=== PATIENT | male | born 1955 | race Hispanic/Latino ===

== ENCOUNTER 2020-11-29 18:45 | Inpatient (IN) | payer MEDICAID, OTHER ==
[~2020-11-29] VITALS: Ht 165.1 cm; Wt 76.7 kg
[2020-11-29] MEDS ORDERED: IOHEXOL-350 75 ML VIAL IV ONE (19:14)
[2020-11-29 19:15] LABS: BASOPHILS % (AUTO) 0.4 % (0.0-5.0); EOSINOPHILS % (AUTO) 0.4 % (0.0-8.0); HEMATOCRIT 44.8 % (42-54); LYMPHOCYTES % (AUTO) 9.5 % (21.0-51.0); MEAN CORPUSCULAR HEMOGLOBIN 31.5 pg (27.0-33.0); MEAN CORPUSCULAR HGB CONC 34.2 g/dL (32.0-36.0); MEAN CORPUSCULAR VOLUME 92.2 fL (79-99); MONOCYTES % (AUTO) 5.7 % (3.0-13.0); NEUTROPHILS % (AUTO) 83.5 % (40.0-77.0); PLATELET COUNT (AUTO) 420 K/uL (130-400); RED BLOOD CELL COUNT(AUTO) 4.86 MIL/uL (4.50-6.20); RED CELL DISTRIBUTION WIDTH 12.7 % (11.0-15.5); WHITE BLOOD COUNT (AUTO) 11.2 K/uL (4.8-10.8)
[2020-11-29] MEDS ORDERED: IOHEXOL-350 50ML VIAL IV ONE (19:15)
[2020-11-29 19:28] LABS: CREATININE 1.3 mg/dL (0.5-1.5); POTASSIUM 4.3 mmol/L (3.5-5.1)
[2020-11-29 19:30] LABS: INR 1.01 (0.85-1.15)
[2020-11-29] MEDS ORDERED: MORPHINE 4 MG SYG ONE ×2 (19:30→23:24)
[2020-11-29 19:31] LABS: PARTIAL THROMBOPLASTIN TIME 28.8 SEC (26.3-35.5)
[2020-11-29 19:33] LABS: ALBUMIN 3.2 g/dL (3.5-5.0); BILIRUBIN,TOTAL 0.7 mg/dL (0.2-1.0)
[2020-11-29 19:48] LABS: B-TYPE NATRIURETIC PEPTIDE 948 pg/mL (0-100)
[2020-11-29] MEDS ORDERED: HEPARIN 5,000 UNIT VIAL ONE (20:21)
[2020-11-29] MEDS ORDERED: HEPARIN 25,000 UNITS/250ML D5W 250 ML IV ONE (20:22)
[2020-11-29] MEDS ORDERED: 0.9%NACL 1000ML 1,000 ML IV ONE (20:22)
[2020-11-29] MEDS ORDERED: LACTULOSE 20 GM/30 ML UDCUP PO PRN (23:45)
[2020-11-29] MEDS ORDERED: DiphenhydrAMINE HCL 50 MG/ML VIAL IV PRN (23:45)
[2020-11-29] MEDS ORDERED: HYDROMORPHONE 1 MG INJ IV PRN (23:45)
[2020-11-29] MEDS ORDERED: MAG/ALUM/SIMETH 30 ML UDCUP PO PRN (23:45)
[2020-11-29] MEDS ORDERED: ONDANSETRON 4MG INJ IV PRN (23:45)
[2020-11-29] MEDS ORDERED: DIPHENHYDRAMINE HCL 25 MG CAPSULE PO PRN (23:45)
[2020-11-29] MEDS ORDERED: NITROGLYCERIN 0.4 MG SL TAB SL PRN (23:45)
[2020-11-29] MEDS ORDERED: MORPHINE 2 MG SYG IV PRN (23:45)
[2020-11-29] MEDS: LACTATED RINGERS 1000ML 1,000 ML IV SCH (23:45)
[2020-11-29] MEDS ORDERED: ACETAMINOPHEN 325 MG TAB PO PRN ×2 (23:45)
[2020-11-29] MEDS ORDERED: GUAIFENESIN-DM 200/20 MG 10 ML PO PRN (23:45)
[2020-11-29] MEDS ORDERED: FUROSEMIDE 20MG VIAL ONE (23:47)
[2020-11-29 23:58] LABS: POTASSIUM 4.3 mmol/L (3.5-5.1)
[2020-11-30] MEDS ORDERED: MORPHINE 2 MG SYG ONE (02:36)
[2020-11-30 03:34] LABS: INR 1.05 (0.85-1.15); PROTHROMBIN TIME 11.4 SEC (9.6-11.6)
[2020-11-30 05:43] LABS: BASOPHILS % (AUTO) 0.2 % (0.0-5.0); EOSINOPHILS % (AUTO) 0.8 % (0.0-8.0); HEMATOCRIT 42.4 % (42-54); LYMPHOCYTES % (AUTO) 11.2 % (21.0-51.0); MEAN CORPUSCULAR HEMOGLOBIN 31.2 pg (27.0-33.0); MEAN CORPUSCULAR VOLUME 91.8 fL (79-99); NEUTROPHILS % (AUTO) 80.2 % (40.0-77.0); PLATELET COUNT (AUTO) 410 K/uL (130-400); RED BLOOD CELL COUNT(AUTO) 4.62 MIL/uL (4.50-6.20); RED CELL DISTRIBUTION WIDTH 12.8 % (11.0-15.5); WHITE BLOOD COUNT (AUTO) 9.5 K/uL (4.8-10.8)
[2020-11-30] MEDS: FUROSEMIDE 20MG VIAL IV SCH ×2 (06:00→18:13)
[2020-11-30 06:11] LABS: BILIRUBIN,TOTAL 0.6 mg/dL (0.2-1.0); POTASSIUM 4.2 mmol/L (3.5-5.1); TOTAL PROTEIN, SERUM 6.7 g/dL (6.0-8.3)
[2020-11-30 06:12] LABS: ALBUMIN 2.5 g/dL (3.5-5.0)
[2020-11-30] MEDS ORDERED: HEPARIN 25,000 UNITS/250ML D5W 250 ML IV PRN (06:30)
[2020-11-30] MEDS ORDERED: HEPARIN 10,000 UNIT/10ML (1,000 UNIT/ML) VIAL ONE (08:32)
[2020-11-30] MEDS ORDERED: IODIXANOL 320 MG/ML 100 ML VIAL ONE (08:32)
[2020-11-30] MEDS ORDERED: LIDOCAINE HCL 400MG/20ML VIAL ONE (08:32)
[2020-11-30] MEDS: 0.9%NACL 1000ML 1,000 ML IV SCH ×2 (09:00→19:00)
[2020-11-30] MEDS ORDERED: DiphenhydrAMINE HCL 50 MG/ML VIAL IVP PRN (09:00)
[2020-11-30] MEDS: FAMOTIDINE 20MG VIAL IV SCH ×2 (09:00→21:43)
[2020-11-30] MEDS ORDERED: DiphenhydrAMINE HCL 50 MG/ML VIAL ONE (09:35)
[2020-11-30] MEDS ORDERED: MIDAZOLAM HCL 1 MG/ML 2ML VIAL ONE (09:36)
[2020-11-30] MEDS ORDERED: FENTANYL CITRATE PF 50 MCG/1 ML 2ML VIAL ONE (09:36)
[2020-11-30] MEDS: LACTATED RINGERS 1000ML 1,000 ML IV SCH (09:45)
[2020-11-30] MEDS ORDERED: NITROGLYCERIN 2 MG VIAL IV ONE (09:55)
[2020-11-30] MEDS ORDERED: TICAGRELOR 90 MG TABLET ONE (11:47)
[2020-11-30] MEDS ORDERED: ASPIRIN 325MG EC TAB PO ONE (11:47)
[2020-11-30] MEDS ORDERED: 0.9%NACL 1000ML 1,000 ML IV SCH (12:00)
[2020-11-30] MEDS ORDERED: ALTEPLASE 2MG VIAL 2 MG/VIAL VIAL IVCATH ONE (12:00)
[2020-11-30 13:42] LABS: HEMATOCRIT 45.3 % (42-54); MEAN CORPUSCULAR HEMOGLOBIN 31.5 pg (27.0-33.0); MEAN CORPUSCULAR HGB CONC 33.8 g/dL (32.0-36.0); MEAN CORPUSCULAR VOLUME 93.2 fL (79-99); RED BLOOD CELL COUNT(AUTO) 4.86 MIL/uL (4.50-6.20); WHITE BLOOD COUNT (AUTO) 12.2 K/uL (4.8-10.8)
[2020-11-30 13:53] LABS: POTASSIUM 4.3 mmol/L (3.5-5.1)
[2020-11-30 14:03] LABS: INR 1.14 (0.85-1.15); PROTHROMBIN TIME 12.3 SEC (9.6-11.6)
[2020-11-30 14:04] LABS: PARTIAL THROMBOPLASTIN TIME 42.4 SEC (26.3-35.5)
[2020-11-30 15:58] LABS: INR 1.12 (0.85-1.15); PROTHROMBIN TIME 12.1 SEC (9.6-11.6)
[2020-11-30 15:59] LABS: PARTIAL THROMBOPLASTIN TIME 30.5 SEC (26.3-35.5)
[2020-11-30] MEDS: HEPARIN 25,000 UNITS/250ML D5W 250 ML IV SCH (16:07)
[2020-11-30 16:39] VITALS: BP 116/60
[2020-11-30 20:11] VITALS: BP 109/51
[2020-11-30] MEDS ORDERED: TICAGRELOR 90 MG TABLET PO SCH (21:00)
[2020-12-01] VITALS (7 sets, daily range): BP systolic 87–100; BP diastolic 43–55
[2020-12-01] MEDS: CEFTRIAXONE 1G VIAL IVP SCH ×2 (00:25→23:46)
[2020-12-01 04:45] LABS: BASOPHILS % (AUTO) 0.2 % (0.0-5.0); EOSINOPHILS % (AUTO) 0.2 % (0.0-8.0); HEMATOCRIT 40.4 % (42-54); LYMPHOCYTES % (AUTO) 7.9 % (21.0-51.0); MEAN CORPUSCULAR HEMOGLOBIN 30.6 pg (27.0-33.0); MEAN CORPUSCULAR HGB CONC 33.4 g/dL (32.0-36.0); MEAN CORPUSCULAR VOLUME 91.6 fL (79-99); MONOCYTES % (AUTO) 7.1 % (3.0-13.0); NEUTROPHILS % (AUTO) 84.2 % (40.0-77.0); PLATELET COUNT (AUTO) 382 K/uL (130-400); RED BLOOD CELL COUNT(AUTO) 4.41 MIL/uL (4.50-6.20); RED CELL DISTRIBUTION WIDTH 12.9 % (11.0-15.5); WHITE BLOOD COUNT (AUTO) 12.2 K/uL (4.8-10.8)
[2020-12-01 04:56] LABS: INR 1.16 (0.85-1.15); PROTHROMBIN TIME 12.5 SEC (9.6-11.6)
[2020-12-01 04:57] LABS: PARTIAL THROMBOPLASTIN TIME 62.6 SEC (26.3-35.5)
[2020-12-01] MEDS: 0.9%NACL 1000ML 1,000 ML IV SCH ×2 (05:00→10:00)
[2020-12-01 05:13] LABS: ALBUMIN 2.2 g/dL (3.5-5.0); BILIRUBIN,TOTAL 0.7 mg/dL (0.2-1.0); POTASSIUM 3.8 mmol/L (3.5-5.1); TOTAL PROTEIN, SERUM 6.1 g/dL (6.0-8.3)
[2020-12-01] MEDS: FUROSEMIDE 20MG VIAL IV SCH ×2 (06:07→17:24)
[2020-12-01] MEDS: FAMOTIDINE 20MG VIAL IV SCH ×2 (09:57→22:17)
[2020-12-01] MEDS: CLOPIDOGREL 75MG TAB PO SCH (09:57)
[2020-12-01] MEDS: ASPIRIN 325 MG TABLET PO SCH (09:57)
[2020-12-01] MEDS: ATORVASTATIN 20 MG TABLET PO SCH (22:17)
[2020-12-02 00:45] VITALS: BP 101/52
[2020-12-02] MEDS: 0.9%NACL 1000ML 1,000 ML IV SCH ×3 (01:00→20:31)
[2020-12-02 04:00] VITALS: BP 105/53
[2020-12-02 06:04] LABS: BASOPHILS % (AUTO) 0.3 % (0.0-5.0); EOSINOPHILS % (AUTO) 1.2 % (0.0-8.0); HEMATOCRIT 36.4 % (42-54); LYMPHOCYTES % (AUTO) 11.8 % (21.0-51.0); MEAN CORPUSCULAR HGB CONC 33.5 g/dL (32.0-36.0); MEAN CORPUSCULAR VOLUME 92.4 fL (79-99); MONOCYTES % (AUTO) 7.7 % (3.0-13.0); NEUTROPHILS % (AUTO) 78.4 % (40.0-77.0); PLATELET COUNT (AUTO) 337 K/uL (130-400); RED BLOOD CELL COUNT(AUTO) 3.94 MIL/uL (4.50-6.20); RED CELL DISTRIBUTION WIDTH 12.9 % (11.0-15.5); WHITE BLOOD COUNT (AUTO) 8.6 K/uL (4.8-10.8)
[2020-12-02] MEDS: FUROSEMIDE 20MG VIAL IV SCH ×2 (06:24→18:04)
[2020-12-02 06:43] LABS: ALBUMIN 2.1 g/dL (3.5-5.0); BILIRUBIN,TOTAL 0.3 mg/dL (0.2-1.0); CREATININE 0.8 mg/dL (0.5-1.5); POTASSIUM 3.8 mmol/L (3.5-5.1)
[2020-12-02 08:17] VITALS: BP 104/37
[2020-12-02] MEDS: FAMOTIDINE 20MG VIAL IV SCH ×2 (08:40→20:19)
[2020-12-02] MEDS: CLOPIDOGREL 75MG TAB PO SCH (08:40)
[2020-12-02] MEDS: ASPIRIN 325 MG TABLET PO SCH (08:40)
[2020-12-02 12:07] VITALS: BP 112/44
[2020-12-02] MEDS ORDERED: 0.9%NACL 1000ML 1,000 ML IV SCH (13:45)
[2020-12-02 17:14] VITALS: BP 98/39
[2020-12-02 20:00] VITALS: BP 104/37
[2020-12-02] MEDS: ATORVASTATIN 20 MG TABLET PO SCH (20:19)
[2020-12-03] VITALS: BP 128/62
[2020-12-03] MEDS: CEFTRIAXONE 1G VIAL IVP SCH ×2 (00:26→23:23)
[2020-12-03 04:00] VITALS: BP 107/55
[2020-12-03 06:21] LABS: BASOPHILS % (AUTO) 0.5 % (0.0-5.0); EOSINOPHILS % (AUTO) 1.6 % (0.0-8.0); HEMATOCRIT 36.7 % (42-54); MEAN CORPUSCULAR HGB CONC 32.7 g/dL (32.0-36.0); MEAN CORPUSCULAR VOLUME 94.8 fL (79-99); MONOCYTES % (AUTO) 6.9 % (3.0-13.0); NEUTROPHILS % (AUTO) 79.5 % (40.0-77.0); PLATELET COUNT (AUTO) 369 K/uL (130-400); RED BLOOD CELL COUNT(AUTO) 3.87 MIL/uL (4.50-6.20); RED CELL DISTRIBUTION WIDTH 13.1 % (11.0-15.5); WHITE BLOOD COUNT (AUTO) 7.9 K/uL (4.8-10.8)
[2020-12-03 06:30] LABS: INR 1.02 (0.85-1.15); PROTHROMBIN TIME 11.1 SEC (9.6-11.6)
[2020-12-03 06:31] LABS: PARTIAL THROMBOPLASTIN TIME 40.5 SEC (26.3-35.5)
[2020-12-03 06:42] LABS: ALBUMIN 2.2 g/dL (3.5-5.0); BILIRUBIN,DIRECT 0.1 mg/dL (0.0-0.3); BILIRUBIN,TOTAL 0.4 mg/dL (0.2-1.0); CREATININE 0.9 mg/dL (0.5-1.5); POTASSIUM 3.9 mmol/L (3.5-5.1); TOTAL PROTEIN, SERUM 6.1 g/dL (6.0-8.3)
[2020-12-03] MEDS: FUROSEMIDE 20MG VIAL IV SCH ×2 (06:45→17:32)
[2020-12-03] MEDS: 0.9%NACL 1000ML 1,000 ML IV SCH ×2 (06:49→17:32)
[2020-12-03] MEDS ORDERED: HEPARIN 5,000 UNIT VIAL ONE (06:53)
[2020-12-03 07:30] VITALS: BP 114/53
[2020-12-03] MEDS: CLOPIDOGREL 75MG TAB PO SCH (09:53)
[2020-12-03] MEDS: LUBIPROSTONE 24 MCG CAP PO SCH ×2 (09:53→16:58)
[2020-12-03] MEDS: ASPIRIN 325 MG TABLET PO SCH (09:53)
[2020-12-03] MEDS: FAMOTIDINE 20MG VIAL IV SCH ×2 (09:54→20:04)
[2020-12-03 11:00] VITALS: BP 102/50
[2020-12-03 16:00] VITALS: BP 111/56
[2020-12-03 18:21] LABS: INR 1.03 (0.85-1.15); PROTHROMBIN TIME 11.2 SEC (9.6-11.6)
[2020-12-03] MEDS: ATORVASTATIN 20 MG TABLET PO SCH (20:04)
[2020-12-03] MEDS: APIXABAN 5 MG TABLET PO SCH (20:04)
[2020-12-03 20:27] VITALS: BP 119/54
[2020-12-04 00:05] VITALS: BP 99/50
[2020-12-04] MEDS: HEPARIN 25,000 UNITS/250ML D5W 250 ML IV SCH (00:22)
[2020-12-04] MEDS: 0.9%NACL 1000ML 1,000 ML IV SCH ×2 (03:45→18:06)
[2020-12-04 04:12] VITALS: BP 111/48
[2020-12-04 05:08] LABS: BASOPHILS % (AUTO) 0.5 % (0.0-5.0); EOSINOPHILS % (AUTO) 2.3 % (0.0-8.0); HEMATOCRIT 35.1 % (42-54); LYMPHOCYTES % (AUTO) 14.3 % (21.0-51.0); MEAN CORPUSCULAR HEMOGLOBIN 30.8 pg (27.0-33.0); MEAN CORPUSCULAR HGB CONC 32.8 g/dL (32.0-36.0); MEAN CORPUSCULAR VOLUME 94.1 fL (79-99); MONOCYTES % (AUTO) 8.2 % (3.0-13.0); NEUTROPHILS % (AUTO) 74.1 % (40.0-77.0); PLATELET COUNT (AUTO) 336 K/uL (130-400); RED BLOOD CELL COUNT(AUTO) 3.73 MIL/uL (4.50-6.20); WHITE BLOOD COUNT (AUTO) 6.5 K/uL (4.8-10.8)
[2020-12-04] MEDS: FUROSEMIDE 20MG VIAL IV SCH ×2 (05:57→18:00)
[2020-12-04 06:03] LABS: ALBUMIN 1.9 g/dL (3.5-5.0); BILIRUBIN,DIRECT 0.1 mg/dL (0.0-0.3); BILIRUBIN,TOTAL 0.4 mg/dL (0.2-1.0); CREATININE 0.7 mg/dL (0.5-1.5); POTASSIUM 3.1 mmol/L (3.5-5.1); TOTAL PROTEIN, SERUM 5.3 g/dL (6.0-8.3)
[2020-12-04] MEDS: CLOPIDOGREL 75MG TAB PO SCH (09:50)
[2020-12-04] MEDS: FAMOTIDINE 20MG VIAL IV SCH ×2 (09:50→20:41)
[2020-12-04] MEDS: APIXABAN 5 MG TABLET PO SCH ×2 (09:51→20:41)
[2020-12-04] MEDS: LUBIPROSTONE 24 MCG CAP PO SCH ×2 (09:51→18:06)
[2020-12-04 11:27] VITALS: BP 111/33
[2020-12-04] MEDS: GABAPENTIN 100 MG CAPSULE PO SCH ×2 (14:46→20:41)
[2020-12-04 17:28] VITALS: BP 131/77
[2020-12-04] MEDS ORDERED: KCL 20 MEQ ERTAB PO SCH (20:15)
[2020-12-04 20:18] VITALS: BP 119/59
[2020-12-04] MEDS: ATORVASTATIN 20 MG TABLET PO SCH (20:41)
[2020-12-04 23:57] VITALS: BP 104/50
[2020-12-05] MEDS: CEFTRIAXONE 1G VIAL IVP SCH ×2 (00:51→23:00)
[2020-12-05] MEDS: 0.9%NACL 1000ML 1,000 ML IV SCH ×4 (01:30→23:00)
[2020-12-05 04:07] VITALS: BP 109/57
[2020-12-05 06:24] LABS: HEMATOCRIT 34.7 % (42-54); MEAN CORPUSCULAR HEMOGLOBIN 30.8 pg (27.0-33.0); MEAN CORPUSCULAR HGB CONC 32.6 g/dL (32.0-36.0); MEAN CORPUSCULAR VOLUME 94.6 fL (79-99); RED BLOOD CELL COUNT(AUTO) 3.67 MIL/uL (4.50-6.20); RED CELL DISTRIBUTION WIDTH 12.9 % (11.0-15.5); WHITE BLOOD COUNT (AUTO) 8.3 K/uL (4.8-10.8)
[2020-12-05 07:00] LABS: ALBUMIN 2.1 g/dL (3.5-5.0); BILIRUBIN,TOTAL 0.5 mg/dL (0.2-1.0); CREATININE 0.9 mg/dL (0.5-1.5); POTASSIUM 4.5 mmol/L (3.5-5.1); TOTAL PROTEIN, SERUM 5.7 g/dL (6.0-8.3)
[2020-12-05] MEDS: FUROSEMIDE 20MG VIAL IV SCH ×2 (07:07→17:27)
[2020-12-05 08:33] VITALS: BP 116/32
[2020-12-05] MEDS: CLOPIDOGREL 75MG TAB PO SCH (09:04)
[2020-12-05] MEDS: LUBIPROSTONE 24 MCG CAP PO SCH ×2 (09:04→17:26)
[2020-12-05] MEDS: GABAPENTIN 100 MG CAPSULE PO SCH ×3 (09:04→20:33)
[2020-12-05] MEDS: APIXABAN 5 MG TABLET PO SCH ×2 (09:06→20:33)
[2020-12-05] MEDS: FAMOTIDINE 20MG VIAL IV SCH ×2 (09:06→20:33)
[2020-12-05 14:20] VITALS: BP 132/72
[2020-12-05 14:23] VITALS: BP 115/42
[2020-12-05 16:00] VITALS: BP 109/38
[2020-12-05 20:15] VITALS: BP 100/50
[2020-12-06 00:03] VITALS: BP 102/50
[2020-12-06 04:12] VITALS: BP 101/51
[2020-12-06 06:11] LABS: ALBUMIN 2.2 g/dL (3.5-5.0); BILIRUBIN,TOTAL 0.4 mg/dL (0.2-1.0); CREATININE 0.8 mg/dL (0.5-1.5); POTASSIUM 3.9 mmol/L (3.5-5.1); TOTAL PROTEIN, SERUM 5.8 g/dL (6.0-8.3)
[2020-12-06] MEDS: FUROSEMIDE 20MG VIAL IV SCH ×2 (06:25→17:08)
[2020-12-06 07:58] VITALS: BP 115/60
[2020-12-06] MEDS: CLOPIDOGREL 75MG TAB PO SCH (08:12)
[2020-12-06] MEDS: LUBIPROSTONE 24 MCG CAP PO SCH ×2 (08:12→17:08)
[2020-12-06] MEDS: FAMOTIDINE 20MG VIAL IV SCH ×2 (08:13→20:14)
[2020-12-06] MEDS: GABAPENTIN 100 MG CAPSULE PO SCH ×3 (08:13→20:14)
[2020-12-06] MEDS: APIXABAN 5 MG TABLET PO SCH ×2 (08:13→20:16)
[2020-12-06] MEDS: 0.9%NACL 1000ML 1,000 ML IV SCH ×2 (10:46→20:26)
[2020-12-06 12:00] VITALS: BP 118/44
[2020-12-06 16:00] VITALS: BP 143/66
[2020-12-06] MEDS ORDERED: CLOP75TA14 PO (18:38)
[2020-12-06] MEDS ORDERED: LISI10TA24 PO (18:38)
[2020-12-06] MEDS ORDERED: METO-408 PO (18:38)
[2020-12-06] MEDS ORDERED: APIX5TAB PO (18:38)
[2020-12-06 20:08] VITALS: BP 95/50
== END 2020-12-06 22:15 | disposition home or self-care (01) | DRG 270 ==
LOC: EDBD 18:45 → EDH 18:45 → EDHIP 18:46 → 3CH 11-30 12:52 → 4AH 12-02 00:31
PROVIDERS: ADMIT Family Medicine; ATTEND Family Medicine
PROC: 04CJ3ZZ Extirpation of Matter from Left External Iliac Artery, Percutaneous Approach (ICD-10-PCS; principal; 2020-11-30)
PROC: 04CL3ZZ Extirpation of Matter from Left Femoral Artery, Percutaneous Approach (ICD-10-PCS; 2020-11-30)
PROC: 04CN3ZZ Extirpation of Matter from Left Popliteal Artery, Percutaneous Approach (ICD-10-PCS; 2020-11-30)
PROC: 04CS3ZZ Extirpation of Matter from Left Posterior Tibial Artery, Percutaneous Approach (ICD-10-PCS; 2020-11-30)
PROC: 047J3DZ Dilation of Left External Iliac Artery with Intraluminal Device, Percutaneous Approach (ICD-10-PCS; 2020-11-30)
PROC: 047S3ZZ Dilation of Left Posterior Tibial Artery, Percutaneous Approach (ICD-10-PCS; 2020-11-30)
PROC: 047N3ZZ Dilation of Left Popliteal Artery, Percutaneous Approach (ICD-10-PCS; 2020-11-30)
PROC: 3E05317 Introduction of Other Thrombolytic into Peripheral Artery, Percutaneous Approach (ICD-10-PCS; 2020-11-30)
PROC: 047L3DZ Dilation of Left Femoral Artery with Intraluminal Device, Percutaneous Approach (ICD-10-PCS; 2020-11-30)
PROC: B41DYZZ Fluoroscopy of Aorta and Bilateral Lower Extremity Arteries using Other Contrast (ICD-10-PCS; 2020-11-30)
DX: I70.202 Unspecified atherosclerosis of native arteries of extremities, left leg (principal); I50.41 Acute combined systolic (congestive) and diastolic (congestive) heart failure; U07.1 COVID-19; J12.82 Pneumonia due to coronavirus disease 2019; I70.92 Chronic total occlusion of artery of the extremities; M62.82 Rhabdomyolysis; I74.5 Embolism and thrombosis of iliac artery; I11.0 Hypertensive heart disease with heart failure; I35.1 Nonrheumatic aortic (valve) insufficiency; I70.8 Atherosclerosis of other arteries; I99.8 Other disorder of circulatory system
CPT/HCPCS: 36415; 37184; 37185; 37220; 37226; 37228; 71045; 75635; 75710; 80048; 80053; 80061; 80076; 82550; 82977; 83605; 83880; 84484; 85025; 85027; 85347; 85610; 85730; 87426; 93005; 93306; 93356; 93926; 93971; 99156; 99157; 99291; C1757; C1760; C1769; C1893; C1894; G0378; J0696; J1200; J1644; J1940; J2250; J2270; J2997; J3010; J3490; J7030; Q9967; U0003

== ENCOUNTER 2020-12-17 12:53 | Emergency (ER) | payer MEDICAID, OTHER ==
[~2020-12-17 12:53] MED LIST: APIX5TAB PO; CLOP75TA14 PO; LISI10TA24 PO; METO-408 PO
[2020-12-17 16:59] LABS: EOSINOPHILS % (AUTO) 4.3 % (0.0-8.0); HEMATOCRIT 37.1 % (42-54); LYMPHOCYTES % (AUTO) 18.3 % (21.0-51.0); MEAN CORPUSCULAR HEMOGLOBIN 31.2 pg (27.0-33.0); MEAN CORPUSCULAR HGB CONC 32.3 g/dL (32.0-36.0); MEAN CORPUSCULAR VOLUME 96.4 fL (79-99); MONOCYTES % (AUTO) 7.2 % (3.0-13.0); PLATELET COUNT (AUTO) 263 K/uL (130-400); RED BLOOD CELL COUNT(AUTO) 3.85 MIL/uL (4.50-6.20); RED CELL DISTRIBUTION WIDTH 12.9 % (11.0-15.5); WHITE BLOOD COUNT (AUTO) 6.1 K/uL (4.8-10.8)
[2020-12-17 17:17] LABS: CREATININE 0.7 mg/dL (0.5-1.5); POTASSIUM 4.1 mmol/L (3.5-5.1)
[2020-12-17 17:20] LABS: INR 1.05 (0.85-1.15); PROTHROMBIN TIME 11.4 SEC (9.6-11.6)
[2020-12-17 17:21] LABS: ALBUMIN 2.9 g/dL (3.5-5.0); BILIRUBIN,TOTAL 0.6 mg/dL (0.2-1.0); PARTIAL THROMBOPLASTIN TIME 32.5 SEC (26.3-35.5); TOTAL PROTEIN, SERUM 7.1 g/dL (6.0-8.3)
== END 2020-12-17 17:46 | disposition home or self-care (01) ==
LOC: EDH 12:53
DX: R60.0 Localized edema (principal); M79.672 Pain in left foot; I10 Essential (primary) hypertension; Z87.891 Personal history of nicotine dependence
CPT/HCPCS: 36415; 80053; 85025; 85610; 85730; 93971

== ENCOUNTER 2020-12-28 12:13 | Emergency (ER) | payer OTHER | END 2020-12-28 12:51 | disposition home or self-care (01) | LOC: EDH 12:13 | DX: I73.9 Peripheral vascular disease, unspecified (principal); G62.9 Polyneuropathy, unspecified; I10 Essential (primary) hypertension ==